=== PATIENT | female | born 1975 ===

== ENCOUNTER → 2016-08-15 | Outpatient (REF) | payer MEDICARE | LOC: M LAB REF 13:57 | DX: K86.1 Other chronic pancreatitis (principal); R16.0 Hepatomegaly, not elsewhere classified; D72.819 Decreased white blood cell count, unspecified; K86.0 Alcohol-induced chronic pancreatitis; R10.9 Unspecified abdominal pain; R79.89 Other specified abnormal findings of blood chemistry ==